=== PATIENT | male | born 1980 ===

== ENCOUNTER 2018-06-08 07:37 | Emergency (ER) | payer OTHER ==
[2018-06-08 07:59] VITALS: TEMP 98.3; O2SAT 99
[2018-06-08 09:03] LABS: BASO # 0.1 K/uL (0.0-0.2); BASO % 0.5 % (0.0-2.0); EOS # 1.1 K/uL (0.0-0.7); EOS % 7.5 % (0.0-4.0); HEMOGLOBIN 16.3 g/dL (12.0-18.0); LYMPH # 2.4 K/uL (1.0-4.3); LYMPH % 16.5 % (20.0-40.0); MEAN CELL VOLUME 86.7 fL (80.0-94.0); MEAN CORPUSCULAR HEMOGLOBIN 29.5 pg (27.0-31.0); MEAN CORPUSCULAR HGB CONC 34.1 g/dL (33.0-37.0); MEAN PLATELET VOLUME 7.8 fL (7.2-11.7); MONO # 0.8 K/uL (0.0-0.8); MONO % 5.8 % (0.0-10.0); NEUT % 69.7 % (50.0-75.0); RBC 5.51 Mil/uL (4.40-5.90); RED CELL DISTRIBUTION WIDTH 12.6 % (11.5-14.5); WHITE BLOOD COUNT 14.3 K/uL (4.8-10.8)
--- NOTE | 2018-06-08 09:15 | RAD ---
Date of service: 06/08/2018 HISTORY: Chest pain COMPARISON: No prior. TECHNIQUE: Chest PA and lateral FINDINGS: LINES AND TUBES: None. LUNG AND PLEURA: The lungs are well inflated and clear. No pleural effusion or pneumothorax. HEART AND MEDIASTINUM: The heart is not enlarged. No aortic atherosclerotic calcifications present. The hilar and mediastinal contours are within normal limits. SKELETAL STRUCTURES: The bony structures are within normal limits for the patient's age. VISUALIZED UPPER ABDOMEN: Normal. OTHER FINDINGS: None. IMPRESSION: No active pulmonary disease.
[2018-06-08 09:19] LABS: INR 1.1; PARTIAL THROMBOPLASTIN TIME 35 SECONDS (21-34); PROTHROMBIN TIME 11.5 SECONDS (9.7-12.2)
[2018-06-08 09:24] LABS: ALB/GLOB RATIO 1.4 (1.0-2.1); ALBUMIN 5.1 g/dL (3.5-5.0); ALT/SGPT 45 U/L (21-72); AST/SGOT 39 U/L (17-59); BLOOD UREA NITROGEN 15 mg/dL (9-20); CALCIUM 9.6 mg/dl (8.6-10.4); GFR NON-AFRICAN AMERICAN > 60
[2018-06-08 09:34] LABS: CK-MB 1.75 ng/mL (0.0-3.38)
[2018-06-08 09:55] LABS: D DIMER < 200 ng/mlDDU (0-243)
[2018-06-08 10:10] LABS: BARBITURATES, UR NEGATIVE (NEGATIVE); BENZODIAZEPINES, UR NEGATIVE (NEGATIVE); OPIATES, UR NEGATIVE (NEGATIVE); PHENCYCLIDINE, UR NEGATIVE (NEGATIVE)
[2018-06-08 10:15] LABS: SQUAMOUS EPITHIAL < 1 /hpf (0-5); URINE BACTERIA RARE (<OCC); URINE BILIRUBIN NEGATIVE (NEGATIVE); URINE BLOOD NEGATIVE (NEGATIVE); URINE CLARITY Clear (Clear); URINE COLOR Yellow (YELLOW); URINE GLUCOSE (UA) NORMAL (Normal); URINE LEUKOCYTE ESTERASE NEG Leu/uL (Negative); URINE PROTEIN NEGATIVE (NEGATIVE); URINE UROBILINOGEN NORMAL mg/dL (0.2-1.0)
--- NOTE | 2018-06-08 10:35 | C.PDOC ---
History Of Present Illness 38 year old male with no prior medical history presents to the ED for evaluation of cough, rhinorrhea, and nasal congestion for x2 weeks. x1 week ago notes developing midsternal pain radiating to the upper back and arms bilaterally associated with intermittent numbness to the arms bilaterally, and intermittent numbness to the left lower extremity. He notes no prior elevation in blood pressure. Chest pain is non-reproducible, no chest wall pain. Denies shortness of breath, fever, chills, nausea, vomiting, chest wall pain, and any other associated symptoms. Family MHx: (+) diabetes. Time Seen by Provider: 06/08/18 08:02 Chief Complaint (Nursing): Flu-like Symptoms History Per: Patient History/Exam Limitations: no limitations Onset/Duration Of Symptoms: Days (x2 weeks) Current Symptoms Are (Timing): Still Present Recent travel outside of the [place]: No Past Medical History Reviewed: Historical Data, Nursing Documentation, Vital Signs Vital Signs: Last Vital Signs Temp 98.3 F 06/08/18 07:45 Pulse 86 06/08/18 07:45 Resp 18 06/08/18 07:45 BP 172/116 H 06/08/18 07:45 Pulse Ox 99 06/08/18 07:45 Family History: States: Unknown Family Hx - Social History Hx Alcohol Use: Yes Hx Substance Use: No - Immunization History Hx Tetanus Toxoid Vaccination: No Hx Influenza Vaccination: No Hx Pneumococcal Vaccination: No Review Of Systems Except As Marked, All Systems Reviewed And Found Negative. Constitutional: Negative for: Fever, Chills ENT: Positive for: Nose Discharge, Nose Congestion Cardiovascular: Positive for: Other ((+) midternal pain. (+) elevated blood pressure. (-) chest wall pain. ) Respiratory: Positive for: Cough Gastrointestinal: Negative for: Nausea, Vomiting Musculoskeletal: Positive for: Arm Pain (bilateral arm pain secondary to midsternal pain. ), Back Pain (upper back pain secondary to midsternal pain. ) Neurological: Positive for: Numbness (to the arm bilaterally and left leg. ) Physical Exam - Physical Exam Appears: Well, Non-toxic, No Acute Distress Skin: Normal Color, Warm, Dry Head: Atraumatic, Normacephalic Eye(s): bilateral: Normal Inspection, PERRL, EOMI Nose: Normal, No Discharge Oral Mucosa: Moist Throat: Normal, No Erythema, No Exudate Neck: Normal ROM, Supple Chest: Symmetrical, No Deformity, No Tenderness Cardiovascular: Rhythm Regular, No Murmur, Other (significantly elevated blood pressure. ) Respiratory: Normal Breath Sounds, No Rales, No Rhonchi, No Wheezing Gastrointestinal/Abdominal: Normal Exam, Soft, No Tenderness Back: Normal Inspection, No CVA Tenderness, No Vertebral Tenderness, No Paraspinal Tenderness Extremity: Normal ROM, No Tenderness, No Swelling Extremity: Bilateral: Atraumatic, Normal Color And Temperature, Normal ROM Pulses: Left Radial: Normal, Right Radial: Normal, Left Dorsalis Pedis: Normal, Right Dorsalis Pedis: Normal Neurological/Psych: Oriented x3, Normal Speech, Normal Cognition, Normal Cranial Nerves, Normal Motor, Normal Sensation, Normal Reflexes Gait: Steady ED Course And Treatment - Laboratory Results Result Diagrams: 06/08/18 08:59 06/08/18 08:59 Lab Results: PT 11.5 SECONDS (9.7-12.2) 06/08/18 08:59 INR 1.1 06/08/18 08:59 APTT 35 SECONDS (21-34) H 06/08/18 08:59 D-Dimer, Quantitative < 200 ng/mlDDU (0-243) 06/08/18 08:59 Troponin I < 0.0120 ng/mL (0.00-0.120) 06/08/18 08:59 Total Bilirubin 1.1 mg/dL (0.2-1.3) 06/08/18 08:59 AST 39 U/L (17-59) 06/08/18 08:59 ALT 45 U/L (21-72) 06/08/18 08:59 Alkaline Phosphatase 84 U/L (38-126) 06/08/18 08:59 Total Protein 8.7 g/dL (6.3-8.3) H 06/08/18 08:59 Albumin 5.1 g/dL (3.5-5.0) H 06/08/18 08:59 Globulin 3.6 gm/dL (2.2-3.9) 06/08/18 08:59 Albumin/Globulin Ratio 1.4 (1.0-2.1) 06/08/18 08:59 Urine Color Yellow (YELLOW) 06/08/18 09:34 Urine Clarity Clear (Clear) 06/08/18 09:34 Urine pH 5.0 (5.0-8.0) 06/08/18 09:34 Ur Specific [place] 1.021 (1.003-1.030) 06/08/18 09:34 Urine Protein Negative mg/dL (NEGATIVE) 06/08/18 09:34 Urine Glucose (UA) Normal mg/dL (Normal) 06/08/18 09:34 Urine Ketones Negative mg/dL (NEGATIVE) 06/08/18 09:34 Urine Blood Negative (NEGATIVE) 06/08/18 09:34 Urine Nitrate Negative (NEGATIVE) 06/08/18 09:34 Urine Bilirubin Negative (NEGATIVE) 06/08/18 09:34 Urine Urobilinogen Normal mg/dL (0.2-1.0) 06/08/18 09:34 Ur Leukocyte Esterase Neg [place]/uL (Negative) 06/08/18 09:34 Urine WBC (Auto) 1 /hpf (0-5) 06/08/18 09:34 Urine RBC (Auto) 3 /hpf (0-3) 06/08/18 09:34 Ur Squamous Epith Cells < 1 /hpf (0-5) 06/08/18 09:34 Urine Bacteria Rare (<OCC) 06/08/18 09:34 ECG Rhythm: Sinus Rhythm ECG Interpretation: No Acute Changes Rate From EC O2 Sat by Pulse Oximetry: 99 (RA) Pulse Ox Interpretation: Normal - Other Rad CXR X-Ray: Viewed By Me, Read By Radiologist Interpretation: FINDINGS: LINES AND TUBES: None. LUNG AND PLEURA: The lungs are well inflated and clear. No pleural effusion or pneumothorax. HEART AND MEDIASTINUM: The heart is not enlarged. No aortic atherosclerotic calcifications present. The hilar and mediastinal contours are within normal limits. SKELETAL STRUCTURES: The bony structures are within normal limits for the patient's age. VISUALIZED UPPER ABDOMEN: Normal. OTHER FINDINGS: None. IMPRESSION: No active pulmonary disease. Progress Note: Plan: Bloodwork. CXR. Urinalysis. All test w/o acute changes, BP was repeated twice and normal. Patient sts he never had h/o HBP. Patient is asymptomatic now, no neuro deficit, no SOB, tolerates po, ambulatory in ED. Patient wants to be d/c home. Patient is stable for discharge. Prescribed Flonase, Motrin, and Tessalon Perles. Advised to return to the ED if symptoms worsen. Disposition - Disposition Referrals: [facility] at [facility] [Outside] Disposition: HOME/ ROUTINE Disposition Time: 12:20 Condition: STABLE Additional Instructions: Follow up in Clinic within 1-2 days. Return to ED if feel worse. Prescriptions: Fluticasone Nasal [Flonase] 1 spr NS BID #1 spr Ibuprofen [Motrin Tab] 600 mg PO Q8 #30 tab Benzonatate [Tessalon Perles] 2 tab PO TID #60 sgl Instructions: Chest Pain That Is Not Caused by the Heart (DC), Viral Upper Respiratory Infection, Adult (DC) Forms: [employer] (Australian) Print Language: MALAY - Clinical Impression Clinical Impression: Upper respiratory infection, Chest pain - PA / TAP DANCER / Resident Statement MD/DO has reviewed & agrees with the documentation as recorded. - Scribe Statement The provider has reviewed the documentation as recorded by the Scribe (Geni Montero) All medical record entries made by the Scribe were at my direction and personally dictated by me. I have reviewed the chart and agree that the record accurately reflects my personal performance of the history, physical exam, medical decision making, and the department course for this patient. I have also personally directed, reviewed, and agree with the discharge instructions and disposition.
[2018-06-08 12:25] VITALS: BP 117/87; PULSE 80; RESP 13
== END 2018-06-08 12:46 | disposition home or self-care (01) ==
LOC: C.ER 07:37
DX: J06.9 Acute upper respiratory infection, unspecified (principal); R07.9 Chest pain, unspecified

== ENCOUNTER 2018-08-19 05:55 | Emergency (ER) | payer OTHER ==
[2018-08-19 07:01] VITALS: BP 120/80; PULSE 85; RESP 20; TEMP 98.2; O2SAT 100
--- NOTE | 2018-08-19 07:32 | C.PDOC ---
History Of Present Illness 38 y/o male presents to the ED complaining of generalized body aches, runny nose, non-productive cough, fever, and sore throat since Sunday night. He reports taking tylenol and motrin intermittently with transient relief. States that he cannot sleep. Otherwise he denies any chest pain, SOB, abdominal pain, nausea, vomiting, diarrhea, or dysuria. Time Seen by Provider: 08/19/18 07:14 Chief Complaint (Nursing): Cough, Cold, Congestion History Per: Patient History/Exam Limitations: no limitations Onset/Duration Of Symptoms: Days (x 2) Current Symptoms Are (Timing): Still Present Location Of Pain: Throat Associated Symptoms: Fever, Sore Throat, Cough, Myalgias Past Medical History Reviewed: Historical Data, Nursing Documentation, Vital Signs Vital Signs: Last Vital Signs Temp 98.2 F 08/19/18 06:59 Pulse 85 08/19/18 06:59 Resp 20 08/19/18 06:59 BP 120/80 08/19/18 06:59 Pulse Ox 100 08/19/18 06:59 Family History: States: Unknown Family Hx - Social History Hx Alcohol Use: Yes Hx Substance Use: No - Immunization History Hx Tetanus Toxoid Vaccination: No Hx Influenza Vaccination: No Hx Pneumococcal Vaccination: No Review Of Systems Constitutional: Positive for: Fever, Other (Body aches) ENT: Positive for: Nose Discharge, Nose Congestion, Throat Pain. Negative for: Ear Pain, Ear Discharge Cardiovascular: Negative for: Chest Pain Respiratory: Positive for: Cough. Negative for: Shortness of Breath, Sputum Gastrointestinal: Negative for: Nausea, Vomiting, Abdominal Pain, Diarrhea Musculoskeletal: Negative for: Back Pain Skin: Negative for: Rash Neurological: Negative for: Weakness, Numbness, Dizziness Physical Exam - Physical Exam Appears: Well, Non-toxic, No Acute Distress Skin: Normal Color, Warm, Dry Head: Atraumatic, Normacephalic Eye(s): bilateral: Normal Inspection, PERRL, EOMI Throat: Erythema (Mild pharyngeal erythema), No Exudate, Other (No tonsillar swelling) Neck: Normal ROM, Supple Chest: Symmetrical Cardiovascular: Rhythm Regular, No Murmur Respiratory: Normal Breath Sounds, No Rales, No Rhonchi, No Wheezing Gastrointestinal/Abdominal: Soft, No Tenderness, No Distention Extremity: Bilateral: Atraumatic, Normal ROM (x 4) Neurological/Psych: Oriented x3, Normal Speech Gait: Steady ED Course And Treatment O2 Sat by Pulse Oximetry: 100 (on RA) Pulse Ox Interpretation: Normal Progress Note: Will treat patient empirically for flu. Patient given 600 mg ibuprofen, 75 mg tamiflu, and 100 mg tessalon perles in the ED. On reassessment patient is resting comfortably and remains afebrile. VSS. Counseled patient regarding diagnosis and course of discharge. Disposition Counseled Patient/Family Regarding: Diagnosis, Need For Followup, Rx Given - Disposition Referrals: [facility] [Outside] Disposition: HOME/ ROUTINE Disposition Time: 07:45 Condition: STABLE Additional Instructions: FOLLOW UP IN THE MEDICAL CLINIC IN 1-2 DAYS USE MEDICATIONS DIRECTED DRINK PLENTY OF FLUIDS RETURN TO EMERGENCY ROOM IF YOUR SYMPTOMS BECOME WORSE SEGUIR EN LA CLNICA MDICA EN 1-2 NEWBERRY UTILICE MEDICAMENTOS [place] SE DIRIGE BEBER [place] LQU[place] VUELVA A LA MAGGI DE EMERGENCIA SI EVA SNTOMAS SE HACEN [place] Prescriptions: Benzonatate [Tessalon Perles] 100 mg PO BID PRN #15 sgl PRN Reason: Cough Ibuprofen [Motrin Tab] 600 mg PO Q6 PRN #30 tab PRN Reason: fever/pain Oseltamivir Phosphate [Tamiflu] 75 mg PO BID #10 capsule Instructions: Viral Syndrome (DC) Forms: [employer] (Ghanaian), Work Excuse Print Language: MOSOTHO - Clinical Impression Clinical Impression: Viral disease, Influenza-like illness - Scribe Statement The provider has reviewed the documentation as recorded by the Preethi Jean Provider Attestation: All medical record entries made by the Kekeibbryan were at my direction and personally dictated by me. I have reviewed the chart and agree that the record accurately reflects my personal performance of the history, physical exam, medical decision making, and the department course for this patient. I have also personally directed, reviewed, and agree with the discharge instructions and disposition.
== END 2018-08-19 07:58 | disposition home or self-care (01) ==
LOC: C.ER 05:55
DX: J11.1 Influenza due to unidentified influenza virus with other respiratory manifestations (principal); B34.9 Viral infection, unspecified